=== PATIENT | male | born 1970 | race Caucasian/White ===

== ENCOUNTER → 2018-04-09 14:14 | Outpatient (CLI) | payer OTHER, SELFPAY ==
--- NOTE | 2018-04-09 14:30 | RAD_ITS ---
STUDY: X-RAY - ABDOMEN/PELVIS REASON FOR EXAM: Male, 47 years old. Abdominal pain. TECHNIQUE: AP supine and upright views of the abdomen and pelvis. COMPARISON: None. FINDINGS: Normal visualized lung bases. There is an unremarkable bowel gas pattern. There is no demonstrated free abdominal air. The visualized liver, spleen and kidneys are grossly normal in size and morphology. Normal soft tissue structures. Normal visualized osseous structures. RAD/Abd Inc Decub and/or Erect IMPRESSION: No definite abnormality. Electronically Signed: Koko Mcdaniel MD at 15:51 EST , Service support ,
== END ==
PROVIDERS: Family Provider Family Medicine Geriatric Medicine; PCP Family Medicine Geriatric Medicine; Referring Provider Family Medicine Geriatric Medicine; Visit Provider Family Medicine Geriatric Medicine
DX: R10.9 Unspecified abdominal pain (principal)
CPT/HCPCS: 74019

== ENCOUNTER → 2018-04-25 11:05 | Outpatient (CLI) | payer OTHER, SELFPAY ==
--- NOTE | 2018-04-25 11:14 | RAD_ITS ---
STUDY: X-RAY - ABDOMEN/PELVIS REASON FOR EXAM: Male, 48 years old. 2 week history of mid abdominal pain and vomiting. TECHNIQUE: AP supine and upright views of the abdomen and pelvis. COMPARISON: Comparison is made with prior study dated April 09, 2018. FINDINGS: Normal visualized lung bases. There is an unremarkable bowel gas pattern. There is no demonstrated free abdominal air. The visualized liver, spleen and kidneys are grossly normal in size and morphology. The patient is status post cholecystectomy. Normal soft tissue structures. There are degenerative changes of the visualized lumbar spine. RAD/Abd Inc Decub and/or Erect IMPRESSION: Normal x-ray examination of the abdomen and pelvis. Electronically Signed: Sadi Prado, at 12:44 EDT , Service support ,
[2018-04-25 13:22] LABS: Amylase 59 U/L (25-115); Lipase 190 U/L (73-393)
== END ==
LOC: POLAB3 11:08 → RAD 11:13
PROVIDERS: Family Provider Family Medicine Geriatric Medicine; PCP Family Medicine Geriatric Medicine; Referring Provider Family Medicine Geriatric Medicine; Visit Provider Family Medicine Geriatric Medicine
DX: R10.9 Unspecified abdominal pain (principal)
CPT/HCPCS: 36415; 74019; 82150; 83690

== ENCOUNTER 2018-04-29 19:22 | Emergency (ER) | payer OTHER, SELFPAY ==
[2018-04-29 19:25] VITALS: BP 159/87; PULSE 91; RESP 18; TEMP 37.4; O2SAT 95; BMI 29.9
[2018-04-29 20:17] LABS: Absolute Neutrophil Count 5.1 X10^3/uL (2.0-7.7); Basophil# 0.04 X10^3/uL; Basophil% 0.5 % (0-1); Eosinophil# 0.21 X10^3/uL; Eosinophils% 2.7 % (0-5); Hematocrit 38.6 % (40-54); Hemoglobin 13.1 g/dl (13.0-16.5); Lymphocyte % 24.2 % (19-41); Mean Corp Hgb Conc 33.9 g/gl (32-36); Mean Corpuscular Volume 88.5 fL (80-94); Monocyte# 0.61 X10^3/uL; Monocyte% 7.8 % (0-10); Neutrophil # 5.07 X10^3/uL (2.7-7.7); Neutrophil % 64.4 % (47-70); Platelet Count 194 K/mm3 (150-450); RBC Distribution Width CV 12.1 % (11.6-14.6); RBC Distribution Width SD 38.8 fl (35.1-43.9); Red Blood Count 4.36 M/mm3 (4.6-6.2); White Blood Count 7.9 K/mm3 (4.4-11.0)
[2018-04-29 20:18] LABS: POSITIVE COUNT NO; POSITIVE DIFFERENTIAL NO; POSITIVE MORPHOLOGY NO
--- NOTE | 2018-04-29 20:20 | RAD_ITS ---
STUDY: X-RAY - LEFT ANKLE REASON FOR EXAM: Male, 48 years old. Standard and ankle with pitch fork. Medial swelling. TECHNIQUE: 3 view(s) of the ankle. COMPARISON: None. FINDINGS: Normal visualized distal tibia and fibula. Normal medial and lateral malleoli. Normal tibiotalar articulation and ankle mortise. Normal visualized talus and calcaneus. The visualized subtalar, talonavicular, calcaneocuboid and tarsal articulations are normal. There is minimal soft tissue swelling over the medial ankle and hindfoot. There is no opaque foreign body. RAD/Ankle min 3 Views IMPRESSION: Mild soft tissue swelling of the medial ankle. There is no fracture or dislocation. Electronically Signed: Walter Bang DO at 20:32 EDT Tel [phone], Service support ,
[2018-04-29] MEDS: Ketorolac 30 MG/ML Syringe IV (21:06)
--- NOTE | 2018-04-29 21:36 | ED.VISSUMM ---
- ER Visit Summary Date of Service: 04/29/18 Chief Complaint: [Injury to left ankle] History of Present Illness: The patient is a 48 M [presents the emergency department with an injury to his left ankle that occurred this morning around 9:30 AM. Patient was cleaning out a stall for cattle and accidentally struck himself in the left ankle with a pitchfork. Patient was wearing rubber boots. He sustained a small puncture wound that he cleaned with peroxide and washed it. Patient comes in with increased pain and having a hard time walking secondary to pain. He denies any fever. Patient currently on amoxicillin.] Physical Examination: [HEENT-PERRLA, EOMI. Cranial nerves II through XII grossly intact. TMs clear. Mucous membranes moist. No adenopathy. Cardiovascular-regular rate and rhythm without murmur or ectopy Lungs-clear to auscultation, chest wall stable without crepitus or subcu emphysema Abdomen-normoactive bowel sounds, soft, nontender, no rebound or rigidity, no peritoneal signs. Extremities-intact ?4, normal range of motion, normal pulses. Left ankle-patient has soft tissue swelling over the lateral malleolus with a small puncture wound just anterior to the malleolus. He has no erythema or warmth noted. No lymphangitic streaking. He is neurovascular intact distally.] Test Results: [X-rays of the left ankle were negative for fracture or foreign body. CBC with differential is normal.] Emergency Department Course and Treatment: [Patient was given clindamycin 900 mg IV.] Treatment Plan: [Patient will be started on clindamycin and given a for [place] for home.] Disposition: [Discharged home in stable condition. Advised to follow-up for a wound check with primary care physician within the next 3 days. Patient to return if increasing pain, redness, swelling, or condition should worsen anyway.] Impression: [Contusion left ankle Puncture wound left ankle.] This note was generated with [employer] dictation software. It may contain incorrect words, spelling, and punctuation that were not noted in review of the chart prior to signing ED Disposition - Plan for ED Patient: Referrals: Eric Cho Chi, MD [Primary Care Provider] -
--- NOTE | 2018-04-29 21:39 | ED.DCSUM_ITS ---
- ER Visit Summary Date of Service: 04/29/18 Chief Complaint: [Injury to left ankle] History of Present Illness: The patient is a 48 M [presents the emergency department with an injury to his left ankle that occurred this morning around 9:30 AM. Patient was cleaning out a stall for cattle and accidentally struck himself in the left ankle with a pitchfork. Patient was wearing rubber boots. He sustained a small puncture wound that he cleaned with peroxide and washed it. Patient comes in with increased pain and having a hard time walking secondary to pain. He denies any fever. Patient currently on amoxicillin.] Physical Examination: [HEENT-PERRLA, EOMI. Cranial nerves II through XII grossly intact. TMs clear. Mucous membranes moist. No adenopathy. Cardiovascular-regular rate and rhythm without murmur or ectopy Lungs-clear to auscultation, chest wall stable without crepitus or subcu emphysema Abdomen-normoactive bowel sounds, soft, nontender, no rebound or rigidity, no peritoneal signs. Extremities-intact ?4, normal range of motion, normal pulses. Left ankle- patient has soft tissue swelling over the lateral malleolus with a small puncture wound just anterior to the malleolus. He has no erythema or warmth noted. No lymphangitic streaking. He is neurovascular intact distally.] Test Results: [X-rays of the left ankle were negative for fracture or foreign body. CBC with differential is normal.] Emergency Department Course and Treatment: [Patient was given clindamycin 900 mg IV.] Treatment Plan: [Patient will be started on clindamycin and given a for [place] for home.] Disposition: [Discharged home in stable condition. Advised to follow-up for a wound check with primary care physician within the next 3 days. Patient to return if increasing pain, redness, swelling, or condition should worsen anyway.] Impression: [Contusion left ankle Puncture wound left ankle.] This note was generated with [email or web address] dictation software. It may contain incorrect words, spelling, and punctuation that were not noted in review of the chart prior to signing ED Disposition - Plan for ED Patient: Referrals: Eric Cho Chi, MD [Primary Care Provider] -
--- NOTE | 2018-04-29 21:39 | ED.DEP ---
ED Disposition - Plan for ED Patient: Instructions: ED Wound Puncture Foot, ED Contusion Foot Prescriptions: Clindamycin HCl [Cleocin] 300 mg PO Q6H #40 cap Referrals: Eric Cho Chi, MD [Primary Care Provider] - 3-5 Days
[2018-04-29 21:52] VITALS: BP 144/73; PULSE 72; RESP 16; O2SAT 99
== END 2018-04-29 22:06 | disposition home or self-care (01) ==
PROVIDERS: Emergency Provider Emergency Medicine; Family Provider Family Medicine Geriatric Medicine; PCP Family Medicine Geriatric Medicine
DX: S91.032A Puncture wound without foreign body, left ankle, initial encounter (principal); S90.02XA Contusion of left ankle, initial encounter; W27.1XXA Contact with garden tool, initial encounter; Y93.K9 Activity, other involving animal care; Y92.9 Unspecified place or not applicable; Y99.9 Unspecified external cause status; F17.220 Nicotine dependence, chewing tobacco, uncomplicated
CPT/HCPCS: 73610; 85025; 96365; 96375; 99283; J7050; A4216

== ENCOUNTER → 2018-05-28 13:25 | Outpatient (CLI) | payer OTHER, SELFPAY ==
[2018-04-29 19:25] VITALS: BMI 29.9
--- NOTE | 2018-05-28 14:20 | ECHOD_ITS ---
Reason For Study: SOB Procedure This was a 2D Doppler, Color Flow transthoracic echocardiogram. The study was technically difficult. Exam performed in department. Left Ventricle Normal LV size. Left ventricular systolic function is normal. The estimated ejection fraction is 65 %. No evidence for diastolic dysfunction. No regional wall motion abnormalities noted. Right Ventricle Normal RV size. Normal systolic function. Atria Normal left atrium. Normal right atrium. No doppler evidence for ASD. Mitral Valve There is no mitral annular calcification. Normal mitral valve. Trivial mitral valve insufficiency. Tricuspid Valve Normal tricuspid valve. Trivial tricuspid valve insufficiency. Unable to estimate RV systolic pressure/pulmonary artery pressure due to technically difficult study. Aortic Valve Trisinus/trileaflet aortic valve. Normal aortic valve. Pulmonic Valve The pulmonic valve is not well visualized. Great Vessels The aortic root is not well visualized. Pericardium/Pleural No pericardial effusion. MMode/2D Measurements & Calculations LVIDd: 4.1 cm IVSd: 1.3 cm LA dimension: 3.4 cm LVIDs: 2.8 cm LVPWd: 1.1 cm FS: 31.0 % LAV(MOD-bp): 59.0 ml LA A4 area: 19.6 cm2 RA A4 area: 13.5 cm2 LAV(MOD-bp) Indexed: 26.6 ml/m2 LAV(MOD-sp2): 65.1 ml LAV(MOD-sp4): 53.2 ml Time Measurements MV dec time: 0.20 sec Doppler Measurements & Calculations MV E max franklyn: 80.5 cm/sec Lat Peak E' Franklyn: 11.4 cm/sec Med Peak E' Franklyn: 7.4 cm/sec MV A max franklyn: 67.6 cm/sec E/E' lat: 7.1 E/E' med: 10.9 MV E/A: 1.2 MV V2 max: 86.7 cm/sec MV P1/2t max franklyn: 86.7 cm/sec Ao V2 max: 113.0 cm/sec MV max P.0 mmHg MV P1/2t: 82.0 msec Ao max P.1 mmHg MV V2 mean: 54.4 cm/sec MV dec slope: 309.8 cm/sec2 MV mean P.4 mmHg MVA(P1/2t): 2.7 cm2 MV V2 VTI: 21.3 cm LV V1 max: 113.3 cm/sec PA V2 max: 107.9 cm/sec LV V1 max P.1 mmHg Interpretation Summary The study was technically difficult. Left ventricular systolic function is normal. The estimated ejection fraction is 65 %. Trivial mitral valve insufficiency. Trivial tricuspid valve insufficiency. Unable to estimate RV systolic pressure/pulmonary artery pressure due to technically difficult study. No evidence for diastolic dysfunction. Ordering Physician: Eric Cho Referring Physician: Eric Cho Chi Performed By: Alex Camacho RCS
--- NOTE | 2018-05-28 16:33 | PFTCOMP_ITS ---
COMPLETE PULMONARY FUNCTION TEST INTERPRETATION Brief HPI: Patient is a 49 year old male, currently under the care of Dr. Cho, who presents to [facility] for complete pulmonary function tests secondary to diagnosis of dyspnea. Respiratory therapist reports good effort and reproducible results. Interpretation: Forced expiration spirometry shows no large airways obstructive ventilatory defect with an FEV1 of 83% predicted. There is no significant bronchodilator response by strict ATS criteria. Spirograms are of good quality and plateau normally. The respiratory flow volume loop shows a normal pattern. Lung volumes by body plethysmography show a reduced total lung capacity at 5.59 L, 77% predicted. All other lung volumes are reduced symmetrically. Diffusion capacity by carbon monoxide is normal at 93% predicted. The airway resistance is normal. No previous pulmonary function tests were available for review. Impression: Mild restrictive ventilatory defect with preserved diffusion capacity in a pattern consistent with musculoskeletal limitation.
== END ==
PROVIDERS: Family Provider Family Medicine Geriatric Medicine; PCP Family Medicine Geriatric Medicine; Referring Provider Family Medicine Geriatric Medicine; Visit Provider Family Medicine Geriatric Medicine
DX: R06.02 Shortness of breath (principal)
CPT/HCPCS: 93306; 94060; 94726; 94729

== ENCOUNTER → 2019-10-03 17:56 | Outpatient (CLI) | payer OTHER, SELFPAY | PROVIDERS: Referring Provider Internal Medicine Gastroenterology; Visit Provider Internal Medicine Gastroenterology | DX: Z11.59 Encounter for screening for other viral diseases (principal) | CPT/HCPCS: 87635; 94799; C9803; U0003 ==

== ENCOUNTER → 2020-01-09 | Outpatient (CLI) | payer OTHER, SELFPAY | END | disposition home or self-care (01) | LOC: LABSPEC 11:14 | PROVIDERS: Referring Provider Internal Medicine Gastroenterology; Visit Provider Internal Medicine Gastroenterology | DX: Z11.59 Encounter for screening for other viral diseases (principal) | CPT/HCPCS: 87635; C9803; U0003 ==